=== PATIENT | female | born 1990 | race Asian ===

== ENCOUNTER 2016-10-06 21:57 | Inpatient (IN) | payer SELFPAY ==
[~2016-10-06] VITALS: Ht 172.7 cm; Wt 83.3 kg
[2016-10-06] MEDS ORDERED: ONDANSETRON 2MG/ML, 2ML IVPush ONE (22:30)
[2016-10-06] MEDS ORDERED: SODIUM CHLORIDE 0.9% 1,000ML IVBOLUS ONE (22:30)
[2016-10-06] MEDS ORDERED: SODIUM CHLORIDE FLUSH 10ML SYR IVF ONE (22:30)
[2016-10-06 22:41] LABS: PH, VENOUS 7.094 pH (7.320-7.420)
[2016-10-06 22:43] LABS: BLOOD UREA NITROGEN 24 mg/dL (7-18)
[2016-10-06] MEDS ORDERED: ONDANSETRON 2MG/ML, 2ML ONE (22:52)
[2016-10-06] MEDS: PLEASE ENTER ALLERGIES MC SCH ×4 (22:57→23:30)
[2016-10-06 23:04] LABS: ASPARTATE AMINO TRANSFERASE 21 U/L (15-37)
[2016-10-06] MEDS ORDERED: SODIUM BICARBONATE 1 MEQ/ML, 50ML VIAL ONE (23:19)
[2016-10-06] MEDS ORDERED: REGULAR INSULIN 62.5 UNITS in SODIUM CHLORIDE 0.9% 249.375 ML IV PRN (23:20)
[2016-10-06] MEDS ORDERED: SODIUM BICARB 8.4%, 50ML SYRINGE IVPush ONE (23:30)
[2016-10-06 23:45] LABS: HCG UR OBC PASS
[2016-10-07] MEDS: SODIUM CHLORIDE 0.9% 1,000 ML IV SCH ×2 (00:32→05:01)
[2016-10-07 01:14] VITALS: BP 161/86
[2016-10-07] MEDS: ENOXAPARIN 40 MG/0.4 ML SQ SCH ×2 (01:27→23:58)
[2016-10-07 03:08] LABS: BLOOD UREA NITROGEN 22 mg/dL (7-18)
[2016-10-07 04:00] VITALS: BP 122/84
[2016-10-07] MEDS: POTASSIUM CHLORIDE 10 MEQ in D5%-0.45% NACL 1,000 ML IV SCH ×3 (05:59→19:31)
[2016-10-07 06:41] LABS: BLOOD UREA NITROGEN 21 mg/dL (7-18)
[2016-10-07 07:33] LABS: DAU SCREEN DISCLAIMER
[2016-10-07] MEDS: REGULAR INSULIN 62.5 UNITS in SODIUM CHLORIDE 0.9% 249.375 ML IV PRN ×2 (08:55→19:01)
[2016-10-07 10:55] LABS: BLOOD UREA NITROGEN 20 mg/dL (7-18)
[2016-10-07] MEDS: ACETAMINOPHEN 325 MG TABLET PO PRN (11:35)
[2016-10-07] MEDS: AMOXICILLIN 250 MG/5 ML, ORAL SUSP PO SCH ×3 (11:35→21:38)
[2016-10-07] MEDS: FAMOTIDINE 20 MG TABLET PO SCH ×2 (11:35→21:38)
[2016-10-07 15:27] LABS: BLOOD UREA NITROGEN 18 mg/dL (7-18)
[2016-10-07] MEDS ORDERED: POTASSIUM CHLORIDE 10% 40 MEQ/30 ML UDC PO ONE (18:00)
[2016-10-07 19:05] LABS: BLOOD UREA NITROGEN 16 mg/dL (7-18)
[2016-10-07] MEDS: ONDANSETRON 2MG/ML, 2ML IVPush PRN (21:46)
[2016-10-07 23:32] LABS: BLOOD UREA NITROGEN 12 mg/dL (7-18)
[2016-10-08] MEDS: POTASSIUM CHLORIDE 10 MEQ in D5%-0.45% NACL 1,000 ML IV SCH ×2 (02:26→10:28)
[2016-10-08] MEDS: REGULAR INSULIN 62.5 UNITS in SODIUM CHLORIDE 0.9% 249.375 ML IV PRN (02:28)
[2016-10-08] MEDS ORDERED: POTASSIUM CHLORIDE 10% 40 MEQ/30 ML UDC PO ONE (03:00)
[2016-10-08 04:38] LABS: BLOOD UREA NITROGEN 10 mg/dL (7-18)
[2016-10-08 04:42] LABS: ASPARTATE AMINO TRANSFERASE 21 U/L (15-37)
[2016-10-08 04:55] VITALS: BP 142/87
[2016-10-08] MEDS: AMOXICILLIN 250 MG/5 ML, ORAL SUSP PO SCH ×3 (08:58→20:49)
[2016-10-08] MEDS: FAMOTIDINE 20 MG TABLET PO SCH (08:58)
[2016-10-08] MEDS: ONDANSETRON 2MG/ML, 2ML IVPush PRN (09:07)
[2016-10-08 10:36] LABS: BLOOD UREA NITROGEN 7 mg/dL (7-18)
[2016-10-08] MEDS ORDERED: NS + 20MEQ KCL 1,000 ML IV SCH (12:00)
[2016-10-08] MEDS: INSULIN DETEMIR 100 UNITS/ML, PEN SQ-INSULIN SCH ×2 (13:01→23:01)
[2016-10-08] MEDS: INSULIN ASPART 100 UNITS/ML, PEN SQ-INSULIN SCH ×2 (16:21→20:52)
[2016-10-08] MEDS: NS + 20MEQ KCL 1,000 ML IV SCH (19:41)
[2016-10-08] MEDS: ACETAMINOPHEN 325 MG TABLET PO PRN (20:49)
[2016-10-08] MEDS ORDERED: ENOXAPARIN 40 MG/0.4 ML SQ SCH (23:30)
[2016-10-09] MEDS: ONDANSETRON 2MG/ML, 2ML IVPush PRN ×2 (02:06→10:16)
[2016-10-09 04:00] VITALS: BP 153/103
[2016-10-09 06:12] LABS: BLOOD UREA NITROGEN 5 mg/dL (7-18)
[2016-10-09] MEDS ORDERED: POTASSIUM CHLORIDE 20 MEQ TAB.ER.PRT PO ONE (07:00)
[2016-10-09] MEDS: AMOXICILLIN 250 MG/5 ML, ORAL SUSP PO SCH ×3 (09:50→23:07)
[2016-10-09 09:53] VITALS: BP 154/104
[2016-10-09] MEDS: INSULIN ASPART 100 UNITS/ML, PEN SQ-INSULIN SCH ×4 (10:18→23:12)
[2016-10-09] MEDS: INSULIN DETEMIR 100 UNITS/ML, PEN SQ-INSULIN SCH ×2 (12:43→23:13)
[2016-10-09] MEDS: NS + 20MEQ KCL 1,000 ML IV SCH ×2 (12:43→23:07)
[2016-10-09 13:59] VITALS: BP 152/110
[2016-10-09 20:00] VITALS: BP 138/91
[2016-10-09] MEDS ORDERED: ENOXAPARIN 40 MG/0.4 ML SQ SCH (22:00)
[2016-10-10 01:50] VITALS: BP 145/99
[2016-10-10 05:55] LABS: BLOOD UREA NITROGEN 5 mg/dL (7-18)
[2016-10-10] MEDS: INSULIN ASPART 100 UNITS/ML, PEN SQ-INSULIN SCH ×2 (07:00→11:55)
[2016-10-10 07:28] VITALS: BP 144/97
[2016-10-10] MEDS ORDERED: POTASSIUM CHLORIDE 20 MEQ TAB.ER.PRT PO ONE (07:30)
[2016-10-10] MEDS: AMOXICILLIN 250 MG/5 ML, ORAL SUSP PO SCH (08:45)
[2016-10-10] MEDS ORDERED: INSU100I28 SQ-INSULIN (09:16)
[2016-10-10] MEDS ORDERED: INSU100I18 SQ-INSULIN (09:16)
[2016-10-10] MEDS ORDERED: AMOX1TAB61 PO (09:29)
[2016-10-10] MEDS ORDERED: PHENOL THROAT SPRAY BOTTLE MM PRN (09:30)
[2016-10-10] MEDS: NS + 20MEQ KCL 1,000 ML IV SCH (10:30)
[2016-10-10] MEDS: INSULIN DETEMIR 100 UNITS/ML, PEN SQ-INSULIN SCH (12:19)
[2016-10-10 12:22] LABS: HCG UR OBC PASS
[2016-10-10] MEDS ORDERED: PNEUMOCOCCAL 23 VACCINE IM-VACC ONE (13:30)
== END 2016-10-10 13:20 | disposition home or self-care (01) | DRG 637 ==
LOC: ED 23:00 → SUATTDRO 23:07 → EDIP 23:09 → CCU 10-07 00:21 → 5SO 10-08 23:26
DX: E13.10 Other specified diabetes mellitus with ketoacidosis without coma (principal); E43 Unspecified severe protein-calorie malnutrition; G92 Toxic encephalopathy; N17.9 Acute kidney failure, unspecified; E86.0 Dehydration; Z83.3 Family history of diabetes mellitus; J02.0 Streptococcal pharyngitis; F41.9 Anxiety disorder, unspecified; Z68.27 Body mass index [BMI] 27.0-27.9, adult; E87.6 Hypokalemia; E87.8 Other disorders of electrolyte and fluid balance, not elsewhere classified
CPT/HCPCS: 36415; 80048; 80053; 80307; 80329; 81001; 81025; 82010; 82803; 82962; 83036; 83605; 83735; 83930; 84100; 85025; 87040; 87081; 87880; 90732; 93005; 96361; 96365; 96375; J1650; J1815; J2405; J3480; G0480; J7030; J7050